=== PATIENT | female | born 1990 | race African-American/Black ===

== ENCOUNTER 2024-11-17 17:23 | Emergency (ER) | payer MEDICAID, OTHER ==
[~2024-11-17] VITALS: Ht 165.1 cm; Wt 61.0 kg
[2024-11-17 17:28] VITALS: O2SAT 100
[2024-11-17] MEDS ORDERED: SULF1TAB48 MT (17:59)
[2024-11-17] MEDS: KETOROLAC 30MG/ML VIAL IM ONE (18:34)
[2024-11-17] MEDS: LORAZEPAM 1MG TABLET PO ONE (18:34)
[2024-11-17] MEDS: LIDOCAINE HCL/EPINEPHRINE 1%-EPI 1:100,000 20ML VIAL INFIL ONE (18:40)
[2024-11-17] MEDS: LIDOCAINE HCL 1% 20ML VIAL INFIL ONE (18:40)
[2024-11-17 20:11] VITALS: TEMP 36.8
[2024-11-17 21:12] VITALS: BP 121/72; PULSE 69; RESP 18; O2SAT 100
== END 2024-11-17 21:13 | disposition home or self-care (01) ==
LOC: ER 17:23
DX: L02.31 Cutaneous abscess of buttock (principal)
CPT/HCPCS: 81025; 10060; 96372; 99283; J1885; J2004; Z7610 ×5